=== PATIENT | female | born 1950 | race Caucasian/White ===

== ENCOUNTER → 2017-02-19 | Outpatient (CLI) | payer MEDICARE ==
[2017-02-19 15:41] LABS: ALBUMIN 3.4 gm/dL (3.5-5.0); ANION GAP 12.7 (10.0-19.0); CALCIUM 8.9 mg/dL (8.5-10.5); CREATININE 0.9 mg/dL (0.5-1.1); MAGNESIUM 1.8 mg/dL (1.8-2.6); PHOSPHORUS 2.8 mg/dL (2.5-4.9); POTASSIUM 3.7 mMol/L (3.7-5.1)
== END ==
LOC: LCNC 15:17
PROVIDERS: Internal Medicine Interventional Cardiology
DX: R00.2 Palpitations (principal)